=== PATIENT | male | born 1935 | race Caucasian/White ===

== ENCOUNTER 2017-12-30 13:18 | Emergency (ER) | payer OTHER ==
[~2017-12-30] VITALS: Ht 177.8 cm; Wt 95.3 kg
--- NOTE | ~2017-12-30 | EKG ---
[address] [place] [address] ELECTROCARDIOGRAM REPORT Name: GAURAV FREIRE [facility] [id number] Admission: 12/30/17 Attend Phys: Discharge: 12/30/17 Date of : 39 Report #: [id number] THIS REPORT FOR: //name// [facility] ED Test Date: 2017-12-30 Test Time: 13:43:19 Pat Name: GAURAV FREIRE Department: Room: Gender: M Forensic Document Examiner: DEN : 1935 Requested By: Yobany Roberson Order Number: [id number] MD: Chandrakant Le Measurements Intervals [place] Rate: 61 P: [place]: QRS: 98 QRSD: 136 T: -39 QT: 443 QTc: 447 Interpretive Statements Afib/flut and V-paced complexes No further analysis attempted due to paced rhythm No previous ECG available for comparison Electronically Signed On 12-31-2017 8:03:12 CDT by Chandrakant Le [email or web address] <ELECTRONICALLY SIGNED> By: Chandrakant Le MD, [facility] 12/31/17 0803 1343 Chandrakant Le MD, FACC /EPI
[~2017-12-30 13:18] MED LIST: ASPIR 8181 M1 PO; CLONAZEPAM 0.50.5 M1 PO; CLONAZEPAM 1 MG1 M1 PO; JANUMET 50-5001 EACH PO; LIPITOR10 MG PO; LISINOPRIL20 MG PO; NORCO 10-325 T1 EACH PO; NOVOLIN R100 UNIT/1 IJ; PRAVACHOL40 MG PO; PROVIGIL 100 M100 M1 PO; SEROQUEL 50 MG50 MG PO; SERTRALINE HCL50 MG PO; VITAMIN D 5050000 I1 PO; XARELTO20 MG PO
[2017-12-30 13:42] LABS: ABSOLUTE NEUTROPHILS 5.7 thou/uL (1.4-8.2); BASOPHILS 0.7 % (0.0-2.0); EOSINOPHILS 1.6 % (0.0-3.0); HEMATOCRIT 36.9 % (42.0-52.0); HEMOGLOBIN 12.7 gm/dL (14.0-18.0); LYMPHOCYTES 23.3 % (24.0-44.0); MCH 30.3 pg (26.0-34.0); MCHC 34.3 g/dL (28.0-37.0); MCV 88.5 fL (80.0-100.0); MONOCYTES 4.7 % (1.0-8.0); PLATELET COUNT 201 thou/uL (150-400); POLYS 69.7 % (36.0-66.0); RBC 4.18 mil/uL (4.50-6.00); RDW 14.6 % (10.5-14.5); WBC 8.1 thou/uL (4.0-11.0)
[2017-12-30 13:51] LABS: ANION GAP 9 mmol/L (7-16); BUN 46 mg/dL (7-18); CALCIUM 9.1 mg/dL (8.5-10.1); CHLORIDE 106 mmol/L (98-107); CO2 26 mmol/L (21-32); CREATININE 1.9 mg/dL (0.7-1.3); GLUCOSE 135 mg/dL (74-106); POTASSIUM 3.7 mmol/L (3.5-5.1); SODIUM 141 mmol/L (136-145)
[2017-12-30] MEDS ORDERED: ELIQUIS2.5 MG PO (13:53)
[2017-12-30] MEDS ORDERED: TYLENOL EXTRA500 MG PO (13:54)
[2017-12-30] MEDS ORDERED: BIOFREEZE118 ML TOP (13:54)
[2017-12-30] MEDS ORDERED: HYDROCODONE-AP1 EAC6 PO (13:55)
[2017-12-30] MEDS ORDERED: BISACODYL SUPP10 MG RECTAL (13:55)
[2017-12-30] MEDS ORDERED: MAGOX 400400 MG PO (13:55)
[2017-12-30 13:57] LABS: ALBUMIN 3.6 g/dL (3.4-5.0); SGOT 18 U/L (15-37); SGPT 20 U/L (30-65); TOTAL BILIRUBIN 0.4 mg/dL (<0.1-1.0); TOTAL PROTEIN 7.7 g/dL (6.4-8.2); TROPONIN-I < 0.04 ng/mL (<0.06)
[2017-12-30 14:40] LABS: URINE BILIRUBIN NEGATIVE (Negative); URINE BLOOD NEGATIVE (Negative); URINE CLARITY CLEAR; URINE COLOR YELLOW; URINE GLUCOSE-RANDOM* NEGATIVE (Negative); URINE KETONES NEGATIVE (Negative); URINE LEUKOCYTES-REFLEX NEGATIVE (Negative); URINE NITRITE-REFLEX NEGATIVE (Negative); URINE PROTEIN (DIPSTICK) NEGATIVE (Negative); URINE UROBILINOGEN 0.2 E.U./dl (0.2-1.0)
== END 2017-12-30 18:01 | disposition home or self-care (01) ==
LOC: ER 13:18
PROVIDERS: Physician Assistant
DX: R55 Syncope and collapse (principal); R53.1 Weakness; R19.7 Diarrhea, unspecified; M25.511 Pain in right shoulder; K21.9 Gastro-esophageal reflux disease without esophagitis; I10 Essential (primary) hypertension; E78.5 Hyperlipidemia, unspecified; E11.9 Type 2 diabetes mellitus without complications; F41.9 Anxiety disorder, unspecified; M54.9 Dorsalgia, unspecified; G89.29 Other chronic pain